=== PATIENT | female | born 2000 | race Caucasian/White ===

== ENCOUNTER 2023-04-16 13:57 | Emergency (ER) | payer BC ==
[2023-04-16] MEDS ORDERED: Sodium Chloride 0.9% 1000 ML 1,000 ML IV STA (15:01)
[2023-04-16] MEDS ORDERED: Zofran 4 MG/2 ML VIAL IV ONE ×2 (15:01→17:50)
[2023-04-16] MEDS ORDERED: MORPHINE SULFATE 2 MG INJ IV ONE (15:01)
--- NOTE | 2023-04-16 15:07 | ERPHSYRPT ---
- History of Present Illness Time Seen by Provider: 04/16/23 15:03 Historian: patient Exam Limitations: no limitations Patient Subjective Stated Complaint: PT states "I have been vomiting on and off for about a month, consistent every day. I have a gall bladder ultrasound on but I cannot handle the vomiting." Triage Nursing Assessment: PT presented alert and oriented X 3, skin pwd. Pt ambulates with an upright steady gait, able to speak in clear full sentences. Pt in no apaprent respiratory distress. Pt resting comfortalby on the bed. Physician History: Patient is 23-year-old female presents to our ED for evaluation of nausea and vomiting for 1 month. Patient states the nausea vomiting has been intermittent. Patient follow-up with Melania Moore on 10 April. Patient currently has a right upper quadrant ultrasound ordered but has not had it done as of yet. Symptoms are mild to moderate in intensity. No specific worsening or improving factors. Patient voices no other complaints or concerns at this time. Portions of this note were created with voice recognition technology. There may be grammatical, spelling, punctuation or sound alike errors Timing/Duration: week(s) (Intermittent for 4 weeks) Activities at Onset: none Quality: aching Abdominal Pain Onset Location: RUQ, epigastric Pain Radiation: no radiation Severity of Pain-Max: moderate Severity of Pain-Current: mild Modifying Factors: Improves With: nothing Associated Symptoms: denies symptoms Previous symptoms: no prior history Allergies/Adverse Reactions: No Known Drug Allergies Allergy (Verified 04/05/15 17:48) Home Medications: Duloxetine HCl [Drizalma Sprinkle] 40 mg PO DAILY 04/16/23 [History] Norethindrone-E.estradiol-Iron [Vicente Fe 1-20 Tablet] 1 each PO DAILY 04/16/23 [History] Hx Tetanus, Diphtheria Vaccination/Date Given: Yes Hx Influenza Vaccination/Date Given: No Hx Pneumococcal Vaccination/Date Given: No Immunizations Up to Date: Yes Travel Risk - International Travel Have you traveled outside of the country in past 3 weeks: No - Coronavirus Screening Are you exhibiting any of the following symptoms?: Yes Symptoms: Vomiting/Diarrhea Close contact with a COVID-19 positive Pt in past 14-21 Days: No - Vaccine Status Have you recieved a Covid-19 vaccination: Yes Bag Filler: Pfizer - Vaccination Dates Date of 2cond Vaccination (if applicable): 2020 - Review of Systems Constitutional: No Symptoms, No Fever, No Chills Eyes: No Symptoms Ears, Nose, & Throat: No Symptoms Respiratory: No Symptoms, No Cough, No Dyspnea Cardiac: No Symptoms, No Chest Pain, No Edema, No Syncope Abdominal/Gastrointestinal: No Symptoms, No Abdominal Pain, No Nausea, No Vomiting, No Diarrhea Genitourinary Symptoms: No Symptoms, No Dysuria Musculoskeletal: No Symptoms, No Back Pain, No Neck Pain Skin: No Symptoms, No Rash Neurological: No Symptoms, No Dizziness, No Focal Weakness, No Sensory Changes Psychological: No Symptoms Endocrine: No Symptoms Hematologic/Lymphatic: No Symptoms Immunological/Allergic: No Symptoms All Other Systems: Reviewed and Negative - Past Medical History Pertinent Past Medical History: Yes Neurological History: No Pertinent History ENT History: No Pertinent History Cardiac History: Other Respiratory History: No Pertinent History Endocrine Medical History: No Pertinent History Musculoskeletal History: Other GI Medical History: No Pertinent History History: No Pertinent History Psycho-Social History: Depression Female Reproductive Disorders: No Pertinent History Other Medical History: PATENT DUCTUS ARTERIOSIS AT , [facility]. FREQUENTLY ROLLED ANKLE - Past Surgical History Past Surgical History: Yes Neuro Surgical History: No Pertinent History Cardiac: No Pertinent History Respiratory: No Pertinent History Gastrointestinal: No Pertinent History Genitourinary: No Pertinent History Musculoskeletal: No Pertinent History Female Surgical History: No Pertinent History Other Surgical History: T&A - Social History Smoking Status: Former smoker Exposure to second hand smoke: Yes Drug Use: none Patient Lives Alone: No - Female History Hx Last Menstrual Period: control, unknown Hx Now: (unknown) - Nursing Vital Signs Nursing Vital Signs: Initial Vital Signs Temperature 97.7 F 04/16/23 14:08 Pulse Rate 101 H 04/16/23 14:08 Respiratory Rate 20 04/16/23 14:08 Blood Pressure 134/75 04/16/23 14:08 O2 Sat by Pulse Oximetry 100 04/16/23 14:08 Pain Scale Pain Intensity 4 - Physical Exam General Appearance: no apparent distress, alert Eye Exam: PERRL/EOMI, eyes nml inspection Ears, Nose, Throat Exam: normal ENT inspection, pharynx normal, moist mucous membranes Neck Exam: normal inspection, non-tender, supple, full range of motion Respiratory Exam: normal breath sounds, lungs clear, airway intact, No respiratory distress Cardiovascular Exam: regular rate/rhythm, normal heart sounds, normal peripheral pulses Gastrointestinal/Abdomen Exam: soft, tenderness (Mild diffuse abdominal tenderness), No mass Back Exam: normal inspection, normal range of motion, No CVA tenderness, No vertebral tenderness Extremity Exam: normal inspection, normal range of motion, pelvis stable Neurologic Exam: alert, oriented x 3, cooperative, normal mood/affect, nml cerebellar function, sensation nml, No motor deficits Skin Exam: normal color, warm, dry Lymphatic Exam: No adenopathy SpO2 Interpretation: normal SpO2: 100 O2 Delivery: Room Air - Course Nursing assessment & vital signs reviewed: Yes - CT Exams Abdomen/Pelvis CT Interpretation: Tele-radiologist Report (Tiny cul-de-sac fluid presumed physiologic. Remaining CT abdomen pelvis with contrast exam is negative) - Radiology Ultrasound Exam Gallbladder Ultrasound: tele radiology report (Distended gallbladder CBD measures 4.7 mm) Ordered Tests: Active Orders 24 hr Category Date Time Status IV Insertion STAT Care 04/16/23 15:01 Completed ABDOMEN AND PELVIS W CONTRAST [CT] Stat Exams 04/16/23 15:02 Completed GALLBLADDER [US] Stat Exams 04/16/23 15:05 Completed CBC W DIFF Stat Lab 04/16/23 15:20 Completed CMP Stat Lab 04/16/23 15:20 Completed HCG QUALITATIVE, URINE Stat Lab 04/16/23 14:00 Completed LIPASE Stat Lab 04/16/23 15:20 Completed TROPONIN Q4H Lab 04/16/23 15:20 Completed TROPONIN Q4H Lab 04/16/23 19:20 Completed TROPONIN Q4H Lab 04/16/23 23:15 Ordered UA W/RFX UR CULTURE Stat Lab 04/16/23 14:00 Completed Medication Summary Discontinued Medications Generic Name Dose Route Start Last Admin Trade Name Freq PRN Reason Stop Dose Admin Sodium Chloride 1,000 mls @ 999 mls/hr 04/16/23 15:01 04/16/23 17:12 Sodium Chloride 0.9% 1000 Ml IV 04/16/23 16:01 Infused .Q1H1M STA Infusion Sodium Chloride Confirm 04/16/23 15:20 Sodium Chloride 0.9% 1000 Ml Administered 04/16/23 15:21 Dose 1,000 mls @ ud .ROUTE .STK-MED ONE Ceftriaxone Sodium/Dextrose 1 g in 50 mls @ 100 mls/hr 04/16/23 16:40 04/16/23 17:57 Rocephin 1 Gm-D5w 50 Ml Bag IV 04/16/23 17:09 Infused STAT STA Infusion Ceftriaxone Sodium/Dextrose Confirm 04/16/23 16:49 Rocephin 1 Gm-D5w 50 Ml Bag Administered 04/16/23 16:50 Dose 1 g in 50 mls @ ud IV .STK-MED ONE Metoclopramide HCl 10 mg 04/16/23 22:20 04/16/23 22:34 Metoclopramide Hcl 10 Mg/2 Ml Vial IV 04/16/23 22:21 10 mg STAT ONE Administration Metoclopramide HCl Confirm 04/16/23 22:32 Metoclopramide Hcl 10 Mg/2 Ml Vial Administered 04/16/23 22:33 Dose 10 mg .ROUTE .STK-MED ONE Morphine Sulfate 2 mg 04/16/23 15:01 04/16/23 15:26 Morphine Sulfate 2 Mg/Ml Inj IV 04/16/23 15:02 2 mg STAT ONE Administration Morphine Sulfate Confirm 04/16/23 15:20 Morphine Sulfate 2 Mg/Ml Inj Administered 04/16/23 15:21 Dose 2 mg .ROUTE .STK-MED ONE Ondansetron HCl 4 mg 04/16/23 15:01 04/16/23 15:26 Ondansetron Hcl 4 Mg/2 Ml Vial IV 04/16/23 15:02 4 mg STAT ONE Administration Ondansetron HCl Confirm 04/16/23 15:19 Ondansetron Hcl 4 Mg/2 Ml Vial Administered 04/16/23 15:20 Dose 4 mg .ROUTE .STK-MED ONE Ondansetron HCl 4 mg 04/16/23 17:50 04/16/23 17:53 Ondansetron Hcl 4 Mg/2 Ml Vial IV 04/16/23 17:51 4 mg STAT ONE Administration Ondansetron HCl Confirm 04/16/23 17:51 Ondansetron Hcl 4 Mg/2 Ml Vial Administered 04/16/23 17:52 Dose 4 mg .ROUTE .STK-MED ONE Lab/Rad Data: Laboratory Result Diagrams 04/16/23 15:20 04/16/23 15:20 Laboratory Results 04/16/23 04/16/23 04/16/23 Range/Units 19:20 15:20 15:20 WBC (4.0-10.5) x10^3/uL RBC (4.1-5.4) x10^6/uL Hgb (12.0-16.0) g/dL Hct (35-47) % MCV (78-100) fL MCH (26-32) pg MCHC (32-36) g/dL RDW (11.5-14.0) % Plt Count (150-450) x10^3/uL MPV (7.5-11.0) fL Gran % (36.0-66.0) % Immature Gran % (Auto) (0.00-0.4) % Nucleat RBC Rel Count (0.00-0.1) % Eos # (Auto) (0-0.5) x10^3/uL Immature Gran # (Auto) (0.00-0.03) x10^3u/L Absolute Lymphs (auto) (1.0-4.6) x10^3/uL Absolute Monos (auto) (0.0-1.3) x10^3/uL Absolute Nucleated RBC (0.00-0.01) x10^3u/L Lymphocytes % (24.0-44.0) % Monocytes % (0.0-12.0) % Eosinophils % (0.00-5.0) % Basophils % (0.0-0.4) % Absolute Granulocytes (1.4-6.9) x10^3/uL Basophils # (0-0.4) x10^3/uL Sodium 139 (137-145) mmol/L Potassium 3.8 (3.5-5.1) mmol/L Chloride 103 (98-107) mmol/L Carbon Dioxide 22 (22-30) mmol/L Anion Gap 18.2 H (5-15) MEQ/L BUN 8 (7-17) mg/dL Creatinine 0.66 (0.52-1.04) mg/dL Estimated GFR > 60.0 ML/MIN Glucose 103 (74-106) mg/dL Calcium 9.9 (8.4-10.2) mg/dL Total Bilirubin 1.20 (0.2-1.3) mg/dL AST 41 H (14-36) U/L ALT 57 H (0-35) U/L Alkaline Phosphatase 105 (38-126) U/L Troponin I < 0.012 < 0.012 (0.000-0.034) ng/mL Serum Total Protein 8.8 H (6.3-8.2) g/dL Albumin 4.8 (3.5-5.0) g/dL Lipase 30 (23-300) U/L Urine Color (Yellow) Urine Appearance (Clear) Urine pH (4.6-8.0) Ur Specific Clutier (1.005-1.030) Urine Protein (Negative) Urine Glucose (UA) (Negative) mg/dL Urine Ketones (Negative) Urine Blood (Negative) Urine Nitrite (Negative) Urine Bilirubin (Negative) Urine Urobilinogen (0.2) mg/dL Ur Leukocyte Esterase (Negative) U Hyaline Cast (Auto) (0-2) /LPF Urine Microscopic RBC (0-5) /HPF Urine Microscopic WBC (0-5) /HPF Ur Epithelial Cells (None Seen) /HPF Urine Bacteria (None Seen) /HPF Urine Culture Reflexed (NO) Urine HCG, Qual (NEGATIVE) 04/16/23 04/16/23 04/16/23 Range/Units 15:20 14:00 14:00 WBC 11.3 H (4.0-10.5) x10^3/uL RBC 5.28 (4.1-5.4) x10^6/uL Hgb 14.5 (12.0-16.0) g/dL Hct 42.3 (35-47) % MCV 80.1 (78-100) fL MCH 27.5 (26-32) pg MCHC 34.3 (32-36) g/dL RDW 12.0 (11.5-14.0) % Plt Count 337 (150-450) x10^3/uL MPV 10.5 (7.5-11.0) fL Gran % 74.3 H (36.0-66.0) % Immature Gran % (Auto) 0.4 (0.00-0.4) % Nucleat RBC Rel Count 0.0 (0.00-0.1) % Eos # (Auto) 0.04 (0-0.5) x10^3/uL Immature Gran # (Auto) 0.04 H (0.00-0.03) x10^3u/L Absolute Lymphs (auto) 2.14 (1.0-4.6) x10^3/uL Absolute Monos (auto) 0.62 (0.0-1.3) x10^3/uL Absolute Nucleated RBC 0.00 (0.00-0.01) x10^3u/L Lymphocytes % 19.0 L (24.0-44.0) % Monocytes % 5.5 (0.0-12.0) % Eosinophils % 0.4 (0.00-5.0) % Basophils % 0.4 (0.0-0.4) % Absolute Granulocytes 8.39 H (1.4-6.9) x10^3/uL Basophils # 0.04 (0-0.4) x10^3/uL Sodium (137-145) mmol/L Potassium (3.5-5.1) mmol/L Chloride (98-107) mmol/L Carbon Dioxide (22-30) mmol/L Anion Gap (5-15) MEQ/L BUN (7-17) mg/dL Creatinine (0.52-1.04) mg/dL Estimated GFR ML/MIN Glucose (74-106) mg/dL Calcium (8.4-10.2) mg/dL Total Bilirubin (0.2-1.3) mg/dL AST (14-36) U/L ALT (0-35) U/L Alkaline Phosphatase (38-126) U/L Troponin I (0.000-0.034) ng/mL Serum Total Protein (6.3-8.2) g/dL Albumin (3.5-5.0) g/dL Lipase (23-300) U/L Urine Color Dark Yellow A (Yellow) Urine Appearance Clear (Clear) Urine pH 8.0 (4.6-8.0) Ur Specific Clutier 1.025 (1.005-1.030) Urine Protein Trace A (Negative) Urine Glucose (UA) Negative (Negative) mg/dL Urine Ketones 15 A (Negative) Urine Blood Negative (Negative) Urine Nitrite Negative (Negative) Urine Bilirubin Small A (Negative) Urine Urobilinogen 1.0 A (0.2) mg/dL Ur Leukocyte Esterase Small A (Negative) U Hyaline Cast (Auto) NONE SEEN (0-2) /LPF Urine Microscopic RBC 3-5 (0-5) /HPF Urine Microscopic WBC 6-10 A (0-5) /HPF Ur Epithelial Cells Moderate A (None Seen) /HPF Urine Bacteria Rare A (None Seen) /HPF Urine Culture Reflexed NO (NO) Urine HCG, Qual NEGATIVE (NEGATIVE) - Progress Progress: improved Progress Note: 04/16/23 20:[address] Sheriff at 7:[address] Sheriff states that he will accept patient but to inform patient that she will be discharged immediately from his ER without a GI consultation. Dr. Sheriff states that the intractable nausea and vomiting does not meet inpatient criteria for hospitalization. He states that if labs and CAT scan are essentially nonremarkable patient will be discharged home. We advised patient of Dr. Sheriff's plan of care. Patient refused to be transferred to [facility]. Patient requesting that we call [facility] for possible transfer. 04/16/23 20:[address] Kim hospitalist at [facility] who accepts transfer at 8:43 PM. Patient is a 23-year-old female presents to our ED for evaluation of nausea and vomiting and abdominal pain test ordered to include CBC CMP lipase troponin urinalysis CT abdomen pelvis. No acute findings observed on work-up. Patient treated symptomatically. UA reveals urinary tract infection. Patient received a dose of Rocephin. Abdominal pain treated with morphine and Zofran. Patient remained nauseous. A second dose of Zofran administered. Normal saline administered. Patient developed nausea after Zofran. Patient received a dose of metoclopramide. Patient will be transferred to see GI per her request. Complexity of problems addressed is moderate. New diagnosis with uncertain prognosis Complex data reviewed and analyzed is extensive. Labs ordered Labs reviewed esther ging study ordered and reviewed. Clinical correlation made between findings on history and physical. Case discussed with hospitalist at [facility] who accepts transfer. Dr. Kim is excepting doctor at 8:43 PM. Risk complication and risk morbidity/mortality of patient management is high. Patient received IV morphine for pain control. Patient will be transferred to higher level of care. Patient requested to to have her boyfriend drive her to [facility]. Patient refused ambulance. We contacted [facility] and they had no objection. Portions of this note were created with voice recognition technology. There may be grammatical, spelling, punctuation or sound alike errors 04/16/23 23:17 04/16/23 23:19 Discussed with : Other Will see patient in: other Counseled pt/family regarding: lab results, diagnosis (Transfer), rad results - Departure Departure Disposition: Transfer Clinical Impression: Dehydration, Nausea and vomiting, Ketonuria, Urinary tract infection, Abdominal pain Condition: Stable Critical Care Time: No Referrals: [facility] [Primary Care Provider] - Follow up/PCP as directed Additional Instructions: Discharge/Care Plan SAMANTHA BROOKS was seen on 04/16/23 in the Emergency Room. The patient was counseled regarding Diagnosis,Lab results, Imaging studies, need for follow up and when to return to the Emergency Room. Prescriptions given: Discharge Note I have spoken with the patient and/or caregivers. I have explained the patient's condition, diagnosis and treatment plan based on the information available to me at this time. I have answered the patient's and/or caregiver's questions and addressed any concerns. The patient and/or caregivers have as good understanding of the patient's diagnosis, condition and treatment plan as can be expected at this point. The vital signs have been stable. The patient's condition is stable and appropriate for discharge from the emergency department. The patient will pursue further outpatient evaluation with the primary care physician or other designated or consulting physician as outlined in the discharge instructions. The patient and/or caregivers are agreeable to this plan of care and follow-up instructions have been explained in detail. The patient and/or caregivers have received these instruction. The patient/and or caregivers are aware that any significant change in condition or worsening of symptoms should prompt an immediate return to this or the closest emergency department or call 911.
[2023-04-16 15:13] LABS: HCG URINE TEST NEGATIVE (NEGATIVE)
[2023-04-16 15:15] LABS: Appearance Clear (Clear); Bacteria Rare /HPF (None Seen); Bilirubin Small (Negative); Blood Negative (Negative); Epithelial Cells Moderate /HPF (None Seen); Glucose, Urine Negative (Negative); Hyaline Casts NONE SEEN /LPF (0-2); Ketones 15 (Negative); Leukocyte Esterase Small (Negative); Nitrite Negative (Negative); Protein,Urine Dip Trace (Negative); Specific Gravity 1.025 (1.005-1.030)
[2023-04-16] MEDS ORDERED: Zofran 4 MG/2 ML VIAL ONE ×2 (15:19→17:51)
[2023-04-16 15:20] LABS: ADD URINE CULTURE? NO (NO)
[2023-04-16] MEDS ORDERED: Sodium Chloride 0.9% 1000 ML 1,000 ML ONE (15:20)
[2023-04-16] MEDS ORDERED: MORPHINE SULFATE 2 MG INJ ONE (15:20)
[2023-04-16 15:22] LABS: Absolute Neutrophil Ct (ANC) 8.39 x10^3/uL (1.4-6.9); BASOPHIL % 0.4 % (0.0-0.4); Basophil (Absolute #) 0.04 x10^3/uL (0-0.4); Eosinophil % 0.4 % (0.00-5.0); Eosinophil (Absolute #) 0.04 x10^3/uL (0-0.5); Hematocrit 42.3 % (35-47); Hemoglobin 14.5 g/dL (12.0-16.0); IMMATURE GRAN # 0.04 x10^3u/L (0.00-0.03); IMMATURE GRAN % 0.4 % (0.00-0.4); Lymphocyte (Absolute #) 2.14 x10^3/uL (1.0-4.6); Mean Cell Volume 80.1 fL (78-100); Mean Corpuscular Hemoglobin 27.5 pg (26-32); Mean Corpuscular Hgb Concent. 34.3 g/dL (32-36); Mean Platelet Volume 10.5 fL (7.5-11.0); Monocyte (Absolute #) 0.62 x10^3/uL (0.0-1.3); Monocytes % 5.5 % (0.0-12.0); Neutrophil % 74.3 % (36.0-66.0); Platelet Count 337 x10^3/uL (150-450); Red Blood Count 5.28 x10^6/uL (4.1-5.4); White Blood Count 11.3 x10^3/uL (4.0-10.5)
[2023-04-16 15:35] LABS: ALBUMIN 4.8 g/dL (3.5-5.0); ALKALINE PHOSPHATASE 105 U/L (38-126); ANION GAP 18.2 MEQ/L (5-15); BLOOD UREA NITROGEN 8 mg/dL (7-17); CHLORIDE 103 mmol/L (98-107); Calcium 9.9 mg/dL (8.4-10.2); Carbon Dioxide 22 mmol/L (22-30); Creatinine 1 0.66 mg/dL (0.52-1.04); EST GLOMERULAR FILTRATION RATE > 60.0 ML/MIN; Glucose 103 mg/dL (74-106); LIPASE 30 U/L (23-300); Potassium 3.8 mmol/L (3.5-5.1); SGOT/AST 41 U/L (14-36); SGPT/ALT 57 U/L (0-35); SODIUM 139 mmol/L (137-145); Total Protein 8.8 g/dL (6.3-8.2)
--- NOTE | 2023-04-16 16:22 | XRAY ---
Indication: Abdomen pain. Two-dimensional gallbladder sonogram performed. Comparison: December 31, 2018 Visualized gallbladder is abnormally distended again without gallstones, wall thickening, or pericholecystic fluid. Common bile duct measures 4.7 mm. No intrahepatic biliary distention. Remaining visualized liver, pancreas, and right kidney are sonographically unremarkable. Right kidney measures 9.5 cm in length. Impression: Continued negative gallbladder sonogram.
--- NOTE | 2023-04-16 16:34 | XRAY ---
Indication: Lower abdomen pain. Vomiting one month. Polycystic ovary syndrome. Multiple contiguous axial images obtained through the abdomen and pelvis using 80 cc Isovue 370 contrast. Comparison: None Lung bases clear. Heart not enlarged. Noncontrasted stomach and bowel loops appear nonobstructed with normal appendix. Tiny cul-de-sac fluid presumed physiologic from rupture/leaking cyst. No free air. Remaining liver, gallbladder, pancreas, spleen, adrenal glands, kidneys, ureters, bladder, uterus, and aorta are normal in CT appearance and attenuation. No pathologic retroperitoneal lymphadenopathy. Osseous structures intact. Impression: Tiny cul-de-sac fluid presumed physiologic. Remaining CT abdomen/pelvis with contrast exam is normal.
[2023-04-16] MEDS ORDERED: ROCEPHIN 1 Gm-D5w 50 ml Bag** 1 G/50 ML IVPB IV STA (16:40)
[2023-04-16] MEDS ORDERED: ROCEPHIN 1 Gm-D5w 50 ml Bag** 1 G/50 ML IVPB IV ONE (16:49)
[2023-04-16 17:08] VITALS: TEMP 97.2
[2023-04-16 20:11] VITALS: O2SAT 100
[2023-04-16 21:05] VITALS: RESP 18
[2023-04-16] MEDS ORDERED: Reglan 10 MG/2 ML IV ONE (22:20)
[2023-04-16] MEDS ORDERED: Reglan 10 MG/2 ML ONE (22:32)
[2023-04-16 22:39] VITALS: BP 122/70; PULSE 80
== END 2023-04-16 23:10 | disposition short-term general hospital (02) ==
LOC: ED 13:57
DX: E86.0 Dehydration (principal); R11.2 Nausea with vomiting, unspecified; R82.4 Acetonuria; N39.0 Urinary tract infection, site not specified; R10.9 Unspecified abdominal pain; Z79.899 Other long term (current) drug therapy
CPT/HCPCS: 36000; 36415; 74177; 76705; 80053; 81001; 81025; 83690; 84484; 85025; 96360; 96365; 96374; 96375; 96376; 99285; J0696; J2270; J2405